=== PATIENT | female | born 1980 | race Caucasian/White ===

== ENCOUNTER 2025-01-19 12:45 | Outpatient (OUT) | payer MEDICAID, SELFPAY ==
--- NOTE | 2025-01-19 12:48 | US_ITS ---
The [address] [address] Patient Name: THONG YA MRN: [id number] date: 1980 Sex: F Assigned Patient Location: Current Patient Location: Accession/Order Number: [id number] Exam Date: 01/19/2025 14:07 Report Date: 01/19/2025 14:09 At the request of: DONAL ORELLANA NP Procedure: US thyroid Thyroid ultrasound Reason for exam: Abnormal labs. Comparison: none Technique: Grayscale and color Doppler images of the thyroid gland were obtained. Findings: The right lobe measures 3.5 x 1.1 x 0.9 cm. The left lobe measures 3.0 x 1.2 x 0.8 cm. The isthmus measures 2.1 mm. A solid/cystic nodule is seen involving the right isthmus measuring 40 x 13 x 26 mm with microcalcifications. Additional smaller hypoechoic nodules seen involving the superior pole of the right lobe measuring 8 x 4 x 6 mm. US/US thyroid Impression: Nodules are identified involving the thyroid gland largest involving the isthmus measuring 40 x 13 x 26 mm. FNA is recommended. Impression dictated by: Julian Castillo Jr., D.O.01/19/2025 2:09 PM Dictation Location: [facility] Electronically authenticated by: [id number] Date: 01/19/2025 14:09
== END 2025-01-19 12:46 | disposition home or self-care (01) ==
LOC: US 12:45
PROVIDERS: Visit Provider Nurse Practitioner Primary Care
DX: R79.9 Abnormal finding of blood chemistry, unspecified (principal); E04.1 Nontoxic single thyroid nodule
CPT/HCPCS: 76536